=== PATIENT | female | born 1975 | race Caucasian/White ===

== ENCOUNTER 2016-11-18 21:32 | Emergency (ER) | payer SELFPAY ==
[~2016-11-18] VITALS: Ht 165.1 cm; Wt 93.5 kg
[2016-11-18 21:42] VITALS: Ht 165.1 cm; Wt 93.5 kg
[2016-11-18] MEDS ORDERED: ONDANSETRON 4 MG INJ IV STA (23:20)
[2016-11-18] MEDS ORDERED: SOD CHLORIDE 0.9% 1,000 ML IV STA (23:20)
[2016-11-18] MEDS ORDERED: morphine 4 MG/ML VIAL IV STA (23:20)
--- NOTE | 2016-11-18 23:37 | ERD ---
ER Documentation Chief Complaint Date/Time DATE: 11/18/16 TIME: 23:33 Chief Complaint pelvic pain today HPI 41-year-old female presents here in emergency department for complaints of left lower quadrant abdominal pain that started today. Patient discussed the pain as sharp pain, 8/10 scale, accompanied with nausea. Patient denies any fever or chills. Patient denies any diarrhea or constipation. Patient denies any back pain. Patient denies any sick contacts. Patient did not take any medications for pain. ROS All systems reviewed and are negative except as per history of present illness. Medications Home Meds Reported Medications [none] Unknown Strength No Conflict Check 11/18/16 Allergies Allergies: Coded Allergies: No Known Allergy (Unverified , 11/23/14) PMhx/Soc Medical and Surgical Hx: pt denies Medical Hx History of Surgery: Yes (hysterectomy ) Anesthesia Reaction: No Hx Neurological Disorder: No Hx Respiratory Disorders: No Hx Cardiac Disorders: No Hx Psychiatric Problems: No Hx Miscellaneous Medical Probl: No Hx Alcohol Use: No Hx Substance Use: No Hx Tobacco Use: No Smoking Status: Never smoker FmHx Family History: No coronary disease, No diabetes, No other Physical Exam Vitals Vital Signs Date Time Temp Pulse Resp B/P Pulse Ox O2 Delivery O2 Flow Rate FiO2 11/19/16 02:37 97.7 67 18 182/108 98 Room Air 11/18/16 21:42 99.8 81 20 174/90 100 Physical Exam GENERAL: The patient is well developed and appropriate for usual state of health, in no apparent distress. CHEST: Clear to auscultation bilaterally. There are no rales, wheezes or rhonchi. HEART: Regular rate and rhythm. No murmurs, clicks, rubs or gallops. No S3 or S4. ABDOMEN: Soft, nontender and nondistended. Good bowel sounds. No rebound or guarding. No gross peritonitis. No gross organomegaly or masses. No Day sign or McBurney point tenderness. BACK: No midline or flank tenderness. EXTREMITIES: Equal pulses bilaterally. There is no peripheral clubbing, cyanosis or edema. No focal swelling or erythema. Full range of motion. Grossly neurovascularly intact. NEURO: Alert and oriented. Cranial nerves 2-12 intact. Motor strength in all 4 extremities with 5/5 strength. Sensation grossly intact. Normal speech and gait. SKIN: There is no apparent rash or petechia. The skin is warm and dry. HEMATOLOGIC AND LYMPHATIC: There is no evidence of excessive bruising or lymphedema. No gross cervical, axillary, or inguinal lymphadenopathy. Result Diagram: 11/19/16 0010 11/19/16 0010 Results 24 hrs Laboratory Tests Test 11/19/16 00:10 White Blood Count 9.310^3/ul Red Blood Count 4.3710^6/ul Hemoglobin 11.9g/dl Hematocrit 38.0% Mean Corpuscular Volume 87.0fl Mean Corpuscular Hemoglobin 27.2pg Mean Corpuscular Hemoglobin Concent 31.3g/dl Red Cell Distribution Width 15.0% Platelet Count 60414^3/UL Mean Platelet Volume 11.3fl Neutrophils % 61.8% Lymphocytes % 31.0% Monocytes % 5.9% Eosinophils % 0.8% Basophils % 0.2% Nucleated Red Blood Cells % 0.0/100WBC Neutrophils # 5.710^3/ul Lymphocytes # 2.910^3/ul Monocytes # 0.610^3/ul Eosinophils # 0.110^3/ul Basophils # 0.010^3/ul Nucleated Red Blood Cells # 0.010^3/ul Urine Color LT. YELLOW Urine Clarity CLEAR Urine pH 6.0 Urine Specific [place] 1.015 Urine Ketones NEGATIVE Urine Nitrite NEGATIVE Urine Bilirubin NEGATIVE Urine Urobilinogen 0.2 E.U./dL Urine Leukocyte Esterase NEGATIVE Urine Microscopic RBC 5-10/HPF Urine Microscopic WBC 0-2/HPF Urine Squamous Epithelial Cells MODERATE Urine Hemoglobin 2+ Urine Glucose NEGATIVE% Urine Total Protein NEGATIVE Sodium Level 144mmol/L Potassium Level 3.5mmol/L Chloride Level 105mmol/L Carbon Dioxide Level 26mmol/L Anion Gap 17 Blood Urea Nitrogen 10mg/dl Creatinine 0.65mg/dl Glucose Level 105mg/dl Calcium Level 10.1mg/dl Total Bilirubin 0.2mg/dl Direct Bilirubin 0.00mg/dl Indirect Bilirubin 0.2mg/dl Aspartate Amino Transf (AST/SGOT) 29IU/L Alanine Aminotransferase (ALT/SGPT) 50IU/L Alkaline Phosphatase 104IU/L Total Protein 6.0g/dl Albumin 4.8g/dl Globulin 1.20g/dl Albumin/Globulin Ratio 4.00 Lipase 21U/L Current Medications Medications (Trade) Dose Ordered Sig/Surjit Route PRN Reason Start Time Stop Time Status Last Admin Dose Admin Sodium Chloride (NS) 1,000 ml @ 1,000 mls/hr Q1H STAT IV 11/18/16 23:20 11/19/16 00:19 DC 11/19/16 00:11 Morphine Sulfate (morphine) 4 mg ONCE STAT IV 11/18/16 23:20 11/18/16 23:21 DC 11/19/16 00:11 Ondansetron HCl (Zofran Inj) 4 mg ONCE STAT IV 11/18/16 23:20 11/18/16 23:21 DC 11/19/16 00:08 IV Flush 10 ml 10 ml STK-MED ONCE .ROUTE 11/19/16 00:19 11/19/16 00:20 DC 11/19/16 00:19 Sodium Chloride (NS) 100 ml @ ud STK-MED ONCE .ROUTE 11/19/16 00:19 11/19/16 00:20 DC 11/19/16 00:19 Iohexol (Omnipaque 300mg/ ml) 150 ml STK-MED ONCE .ROUTE 11/19/16 00:19 11/19/16 00:20 DC 11/19/16 00:19 Morphine Sulfate (morphine) 4 mg ONCE ONCE IV 11/19/16 02:12 11/19/16 02:13 DC 11/19/16 02:15 Patient was given medication for pain here in emergency department, after treatment, patient verbalized feeling much better. Patient's pain is improved.Patient was given Zofran here in the emergency department. After treatment, patient was able to tolerate po fluids here in the emergency department without any vomiting. There is no signs and symptoms of dehydration. Normal saline IV bolus was given here in emergency department for rehydration, patient tolerated IV fluids. PROCEDURE: CT ABDOMEN/PELVIS WITH CONTRAST CLINICAL INDICATION: 41-year-old female with abdominal pain. TECHNIQUE: The study was performed utilizing a [employer] 64-slice CT scanner. Direct axial sections were obtained through the abdomen and pelvis with the use of 100 cc of Omnipaque-300 nonionic intravenous contrast material. Sagittal and coronal reformations were obtained. One or more of the following dose reduction techniques were utilized: automated exposure control, adjustment of the mA and/or kV according to patient's size or use of iterative reconstruction technique. The images were reviewed on a PACS workstation. CTD/ vol = 22.3 mGy; Total Exam DLP = 1398.7 mGy-cm. COMPARISON: None. FINDINGS: There is trace bibasilar subsegmental atelectasis. There is no evidence for significant pleural effusion. The liver has a normal size and contour. There is diffuse decreased density throughout the liver consistent with fatty infiltration. There is a small hepatic cyst within the right lobe of the liver on axial image 3-38 measuring approximately 4 x 4 x 4 mm. There is additional hepatic cyst adjacent to the gallbladder on axial image 3-55 measuring approximately 8 x 12 x 7 mm. No intrahepatic nor extrahepatic biliary ductal dilatation is seen. The gallbladder contains a dependent gallstone measuring approximately 13 x 16 mm without significant wall thickening or pericholecystic fluid. The pancreas is without areas of abnormal attenuation or contrast enhancement. This spleen is identified and has a normal size without abnormal density or contrast enhancement. The adrenal glands are unremarkable. The kidneys are functional bilaterally without abnormal density. No hydroureteronephrosis nor nephroureterolithiasis is evident. The urinary bladder contains urine. There is umbilical hernia present with an opening of 8 x 10 mm containing fat. There is mild retained stool identified within the colon without obstruction. The appendix is visualized and is without edema or surrounding inflammatory reaction. The uterus is anteflexed. There is no significant free fluid. The left ovary appears prominent and measures approximately 3.9 x 3.6 x 2.9 cm. There is an additional left adnexal density measuring approximately 3.2 x 3.6 x 2.9 cm which may represent a subserosal fibroid however a left adnexal mass or adenopathy cannot be excluded. The aortoiliac vessels are without aneurysmal dilatation. The osseous structures are intact. IMPRESSION: 1. Diffuse fatty infiltration of the liver. 2. Hepatic cysts. 3. Gallstone. 4. Umbilical hernia containing fat. 5. Mild retained stool without obstruction. 6. No CT evidence for appendicitis. 7. Prominent left ovary with questionable additional left adnexal density which may represent and an elongated enlarged left ovary versus subserosal fibroid however a left adnexal mass or adenopathy cannot be excluded. Further evaluation with a pelvic ultrasound may be helpful. .Sterling Reza MD, MD Date Time Electronically viewed and signed by .Sterling Reza MD, MD on 11/19/2016 03:36 .M/ CC: CLAUDIA HUERTA NP PROCEDURE: US Pelvis. CLINICAL INDICATION: Left lower pelvic pain. Last menstrual period 2016 TECHNIQUE: Multiple sonographic images of the pelvis were obtained utilizing a transabdominal and endovaginal technique. The images were reviewed on a PACS workstation. COMPARISON: CT abdomen and pelvis with contrast of 11/19/2016 FINDINGS: The uterus measures 10.8 x 5.5 x 6.3 cm. Nabothian cysts in the cervix. Multiple rounded heterogeneous echotexture uterine masses consistent with fibroids are seen, a 1.6 cm submucosal fibroid in the anterior fundus, a 1.9 cm intramural fibroid in the posterior body, a 3.8 cm intramural and submucosal appearing fibroid in the posterior body, a 1.3 cm intramural fibroid in the posterior fundus, a 3.8 cm fibroid in the left cervix, a 1.7 cm fibroid in the left anterior cervix and a 1.7 cm fibroid in the posterior cervix. The thickness of the endometrium equals 8.3 mm. The right ovary measures 2.5 x 1.5 x 1.4 cm and is unremarkable. The left ovary measures 2.4 x 1.7 x 2.7 cm and is unremarkable. Color flow and spectral analysis demonstrates normal arterial flow in both ovaries. No adnexal mass or free intrapelvic fluid is seen. IMPRESSION: Consistent with multiple uterine fibroids noted above. Please see above. RPTAT: HJES .Everton Ackerman MD, MD Date Time Electronically viewed and signed by .Everton Ackerman MD, MD on 11/19/2016 05:03 .S/ CC: CLAUDIA HUERTA NP Procedures/MDM Medical Decision Making: Patient symptoms obtain most likely consistent with a multiple uterine fibroids noted in the ultrasound. There is low suspicion for abdominal emergencies at this time. Patients abdominal exam is normal at this time. Patients radiology exam does not show any abdominal emergencies at this time. There is low suspicion for appendicitis, cholecystitis, abdominal aortic aneurysms or peritonitis at this time. There is low suspicion for sepsis. Patient appears well and is hemodynamically stable. Disposition: Home. Condition: Stable Prescription Taberg, Colace, ibuprofen Instructions: Patient is advised to take medications as prescribed. Patient is advised to rest, increase fluid intake and do see gynecology specialist for possible removal of the uterine fibroid. Patient is advised that if symptoms are worse, severe abdominal pain, uncontrolled vomiting, high fever, severe flank pain, worst signs and symptoms, to return to the emergency department immediately. Otherwise, patient can follow up with primary care doctor in 5-7 days. Departure Diagnosis: Primary Impression: Uterine fibroid Uterine leiomyoma location: unspecified location Qualified Code: D25.9 - Uterine leiomyoma, unspecified location Condition: Stable Patient Instructions: Uterine Fibroids, What Are Fibroids? Additional Instructions: Patient is advised to take medications as prescribed. Patient is advised to rest , increase fluid intake and do see gynecology specialist for possible removal of the uterine fibroid. Patient is advised that if symptoms are worse, severe abdominal pain, uncontrolled vomiting, high fever, severe flank pain, worst signs and symptoms, to return to the emergency department immediately. Otherwise, patient can follow up with primary care doctor in 5-7 days. CLAUDIA HUERTA NP Nov 18, 2016 23:37
[2016-11-19] MEDS ORDERED: SOD CHLORIDE 0.9% 100 ML ONE (00:19)
[2016-11-19] MEDS ORDERED: IOHEXOL 300MG/ML 150 ML BTL ONE (00:19)
[2016-11-19 00:40] LABS: ADD UMIC YES; UR BILIRUBIN (Dip) NEGATIVE (NEGATIVE); UR BLOOD (Dip) 2+ (NEGATIVE); UR CLARITY CLEAR (CLEAR); UR COLOR LT. YELLOW (YELLOW); UR GLUCOSE (Dip) NEGATIVE (NEGATIVE); UR KETONES (Dip) NEGATIVE (NEGATIVE); UR LEUKOCYTE ESTERASE (Dip) NEGATIVE (NEGATIVE); UR NITRITE (Dip) NEGATIVE (NEGATIVE); UR TOTAL PROTEIN (Dip) NEGATIVE (NEGATIVE); UR UROBILINOGEN (Dip) 0.2 E.U./dL (0.1-1.0)
[2016-11-19 00:57] LABS: ADD SCAN DIFF NO
[2016-11-19 01:05] LABS: BASOPHILS % 0.2 % (0.0-2.0); EOSINOPHILS # 0.1 10^3/ul (0.0-0.5); EOSINOPHILS % 0.8 % (0.0-7.0); HEMOGLOBIN 11.9 g/dl (12.0-16.0); LYMPHOCYTES # 2.9 10^3/ul (0.8-2.9); MEAN CORPUSCULAR HEMOGLOBIN 27.2 pg (29.0-33.0); MEAN CORPUSCULAR HGB CONC 31.3 g/dl (32.0-37.0); MEAN PLATELET VOLUME 11.3 fl (7.4-10.4); MONOCYTE # 0.6 10^3/ul (0.3-0.9); MONOCYTES % 5.9 % (0.0-11.0); NEUTROPHIL # 5.7 10^3/ul (1.6-7.5); NEUTROPHILS % 61.8 % (39.0-77.0); PLATELET COUNT 332 10^3/UL (140-415); RED BLOOD COUNT 4.37 10^6/ul (4.20-5.40); WHITE BLOOD COUNT 9.3 10^3/ul (4.8-10.8)
[2016-11-19 01:25] LABS: ALBUMIN 4.8 g/dl (3.3-4.9); BILIRUBIN,INDIRECT 0.2 mg/dl (0-1.1); BILIRUBIN,TOTAL 0.2 mg/dl (0.2-1.3); CALCIUM 10.1 mg/dl (8.4-10.2); CREATININE 0.65 mg/dl (0.44-1.00); POTASSIUM 3.5 mmol/L (3.5-5.1)
[2016-11-19 01:39] LABS: UR SQUAMOUS EPITHELIAL CELL MODERATE
[2016-11-19] MEDS ORDERED: morphine 4 MG/ML VIAL IV ONE (02:12)
--- NOTE | 2016-11-19 03:36 | RADRPT ---
PROCEDURE: CT ABDOMEN/PELVIS WITH CONTRAST CLINICAL INDICATION: 41-year-old female with abdominal pain. TECHNIQUE: The study was performed utilizing a GE [employer] 64-slice CT scanner. Direct axia l sections were obtained through the abdomen and pelvis with the use of 100 cc of Omnipaque-300 joseph onic intravenous contrast material. Sagittal and coronal reformations were obtained. One or more of the following dose reduction techniques were utilized: automated exposure control, adjustment of the mA and/or kV according to patient's size or use of iterative reconstruction technique. The images were reviewed on a PACS workstation. CTD/vol = 22.3 mGy; Total Exam DLP = 1398.7 mGy-cm. COMPARISON: None. FINDINGS: There is trace bibasilar subsegmental atelectasis. There is no evidence for significant pleural eff usion. The liver has a normal size and contour. There is diffuse decreased density throughout the liver consistent with fatty infiltration. There is a small hepatic cyst within the right lobe of the liver on axial image 3-38 measuring approximately 4 x 4 x 4 mm. There is additional hepatic cyst a djacent to the gallbladder on axial image 3-55 measuring approximately 8 x 12 x 7 mm. No intrahepati c nor extrahepatic biliary ductal dilatation is seen. The gallbladder contains a dependent gallstone measuring approximately 13 x 16 mm without significant wall thickening or pericholecystic fluid. T he pancreas is without areas of abnormal attenuation or contrast enhancement. This spleen is identi fied and has a normal size without abnormal density or contrast enhancement. The adrenal glands are unremarkable. The kidneys are functional bilaterally without abnormal density. No hydroureteronephrosis nor nephroureterolithiasis is evident. The urinary bladder contains urine. The re is umbilical hernia present with an opening of 8 x 10 mm containing fat. There is mild retained s tool identified within the colon without obstruction. The appendix is visualized and is without gage ma or surrounding inflammatory reaction. The uterus is anteflexed. There is no significant free flui d. The left ovary appears prominent and measures approximately 3.9 x 3.6 x 2.9 cm. There is an add itional left adnexal density measuring approximately 3.2 x 3.6 x 2.9 cm which may represent a subser osal fibroid however a left adnexal mass or adenopathy cannot be excluded. The aortoiliac vessels a re without aneurysmal dilatation. The osseous structures are intact. IMPRESSION: 1. Diffuse fatty infiltration of the liver. 2. Hepatic cysts. 3. Gallstone. 4. Umbilical hernia containing fat. 5. Mild retained stool without obstruction. 6. No CT evidence for appendicitis. 7. Prominent left ovary with questionable additional left adnexal density which may represent and a n elongated enlarged left ovary versus subserosal fibroid however a left adnexal mass or adenopathy cannot be excluded. Further evaluation with a pelvic ultrasound may be helpful. .Sterling Reza MD, Date Time Electronically viewed and signed by .Sterling Reza MD, on 11/19/2016 03:36 .[place]/
--- NOTE | 2016-11-19 05:03 | RADRPT ---
PROCEDURE: US Pelvis. CLINICAL INDICATION: Left lower pelvic pain. Last menstrual period 10/23/2016 TECHNIQUE: Multiple sonographic images of the pelvis were obtained utilizing a transabdominal and endovaginal technique. The images were reviewed on a PACS workstation. COMPARISON: CT abdomen and pelvis with contrast of 11/19/2016 FINDINGS: The uterus measures 10.8 x 5.5 x 6.3 cm. Nabothian cysts in the cervix. Multiple rounded heterogen eous echotexture uterine masses consistent with fibroids are seen, a 1.6 cm submucosal fibroid in th e anterior fundus, a 1.9 cm intramural fibroid in the posterior body, a 3.8 cm intramural and submuc osal appearing fibroid in the posterior body, a 1.3 cm intramural fibroid in the posterior fundus, a 3.8 cm fibroid in the left cervix, a 1.7 cm fibroid in the left anterior cervix and a 1.7 cm fibroi d in the posterior cervix. The thickness of the endometrium equals 8.3 mm. The right ovary measure s 2.5 x 1.5 x 1.4 cm and is unremarkable. The left ovary measures 2.4 x 1.7 x 2.7 cm and is unremark able. Color flow and spectral analysis demonstrates normal arterial flow in both ovaries. No adnex al mass or free intrapelvic fluid is seen. IMPRESSION: Consistent with multiple uterine fibroids noted above. Please see above. RPTAT: HJES .Everton Ackerman MD, Date Time Electronically viewed and signed by .Everton Ackerman MD, on 11/19/2016 05:03 .S/
[2016-11-19] MEDS ORDERED: HYDROmorphONE 1 MG/ML SYG IV STA (05:09)
[2016-11-19] MEDS ORDERED: DOCU-144 PO (05:14)
[2016-11-19] MEDS ORDERED: IBUP-1542 PO (05:14)
[2016-11-19] MEDS ORDERED: HYDR-902 PO (05:14)
[2016-11-19 06:04] VITALS: BP 159/76; PULSE 60; RESP 18; TEMP 97.6
== END 2016-11-19 05:15 | disposition home or self-care (01) ==
LOC: FTE 21:32
DX: D25.9 Leiomyoma of uterus, unspecified (principal); R11.0 Nausea
CPT/HCPCS: 36415; 74177; 76830; 76856; 80053; 81001; 83690; 85025; 96374; 96375; 96376; 99285; J1170; J2270; J2405; J7030; Q9967

== ENCOUNTER 2017-04-18 22:34 | Emergency (ER) | payer SELFPAY ==
[~2017-04-18] VITALS: Ht 162.6 cm; Wt 95.2 kg
[~2017-04-18 22:34] MED LIST: DOCU-144 PO; HYDR-902 PO; IBUP-1542 PO
[2017-04-18 22:39] VITALS: Ht 162.6 cm; Wt 95.2 kg
[2017-04-18] MEDS ORDERED: SOD CHLORIDE 0.9% 1,000 ML IV STA (23:40)
[2017-04-18] MEDS ORDERED: morphine 4 MG/ML VIAL IV STA (23:40)
[2017-04-18] MEDS ORDERED: ONDANSETRON 4 MG INJ IV STA (23:40)
[2017-04-19 00:29] LABS: HEMATOCRIT 37.2 % (37.0-47.0); HEMOGLOBIN 11.9 g/dl (12.0-16.0); MEAN CORPUSCULAR VOLUME 87.5 fl (82.0-101.0); MEAN PLATELET VOLUME 11.5 fl (7.4-10.4); RED BLOOD COUNT 4.25 10^6/ul (4.20-5.40); RED CELL DISTRIBUTION WIDTH 15.5 % (11.5-14.5); WHITE BLOOD COUNT 11.6 10^3/ul (4.8-10.8)
[2017-04-19 00:38] LABS: ADD UMIC NO; UR ASCORBIC ACID NEGATIVE (NEGATIVE); UR BILIRUBIN (Dip) NEGATIVE (NEGATIVE); UR BLOOD (Dip) NEGATIVE (NEGATIVE); UR CLARITY CLEAR (CLEAR); UR COLOR STRAW (YELLOW); UR GLUCOSE (Dip) 1+ mg/dL (NEGATIVE); UR KETONES (Dip) NEGATIVE (NEGATIVE); UR LEUKOCYTE ESTERASE (Dip) NEGATIVE Leu/ul (NEGATIVE); UR NITRITE (Dip) NEGATIVE (NEGATIVE); UR SPECIFIC GRAVITY (Dip) 1.011 (1.003-1.030); UR TOTAL PROTEIN (Dip) NEGATIVE (NEGATIVE); UR UROBILINOGEN (Dip) NEGATIVE (NEGATIVE)
[2017-04-19 00:50] LABS: PLATELET COUNT 147 10^3/UL (140-415); POSITIVE DIFF @See below
[2017-04-19 00:53] LABS: ALBUMIN 4.1 g/dl (3.3-4.9); ALBUMIN/GLOBULIN RATIO 1.05; BILIRUBIN,INDIRECT 0.2 mg/dl (0-1.1); BILIRUBIN,TOTAL 0.2 mg/dl (0.2-1.3); CALCIUM 9.3 mg/dl (8.4-10.2); CREATININE 0.64 mg/dl (0.44-1.00); POTASSIUM 4.2 mmol/L (3.5-5.1)
[2017-04-19 02:00] LABS: ANISOCYTOSIS 1+ (0-0); BURR CELLS 1+ (0-0); EOSINOPHILS % (M) 2 % (0-7); MICROCYTOSIS 1+ (0-0); MONOCYTES % (M) 4 % (0-11); OVALOCYTES 1+ (0-0); PLATELET ESTIMATE NORMAL; POIKILOCYTOSIS 1+ (0-0); POLYCHROMASIA 1+ (0-0)
--- NOTE | 2017-04-19 02:03 | RADRPT ---
PROCEDURE: US Pelvis. CLINICAL INDICATION: Abdominal pain. Last menstrual period 03/15/2017 TECHNIQUE: Multiple sonographic images of the pelvis were obtained utilizing a transabdominal and endovaginal technique. The images were reviewed on a PACS workstation. COMPARISON: US PELVIS 11/19/2016 FINDINGS: The uterus measures 10.6 x 5.6 x 5.7 cm. The thickness of the endometrium equals 1.56 cm. Nabothian cysts in the cervix. Multiple rounded heterogeneous echotexture uterine masses consistent with fibr oids are seen, a 3.9 cm subserosal fibroid arising from the left posterior lower uterine segment/cer vix, a 1.2 cm intramural fibroid in the posterior fundus, a 1.9 cm intramural and submucosal appeari ng fibroid in the posterior body, a 2.1 cm submucosal fibroid in the central body, a 1.6 cm intramur al fibroid in the posterior cervix and a 1.6 cm intramural fibroid in the left anterior lower uterin e segment region. The right ovary measures 2.3 x 1.9 x 1.5 cm and is unremarkable. The left ovary me asures 3.3 x 1.8 x 2.1 cm and is unremarkable. Color flow and spectral analysis demonstrates normal arterial and venous flow in both ovaries. No adnexal mass or free intrapelvic fluid is seen. IMPRESSION: Consistent with multiple uterine fibroids overall not significantly changed in size compared to the previous study. Please see above. RPTAT: HJES .Everton Ackerman MD, Date Time Electronically viewed and signed by .Everton Ackerman MD, on 04/19/2017 02:03 .S/
[2017-04-19] MEDS ORDERED: KETOROLAC 60 MG INJ IM STA (02:04)
[2017-04-19] MEDS ORDERED: FENTAnyl 50 MCG/ML VIAL IV ONE ×2 (02:30)
--- NOTE | 2017-04-19 03:00 | RADRPT ---
PROCEDURE: ULTRASOUND LIMITED ABDOMEN CLINICAL INDICATION: 42-year-old female with abdominal pain. TECHNIQUE: Multiple sonographic of the right upper quadrant of the abdomen were obtained. The imag es were reviewed on a PACS workstation. COMPARISON: None. FINDINGS: The pancreas is not well visualized secondary to overlying bowel gas. The liver displays diffuse increased echogenicity consistent with fatty infiltration. The liver franklin ures 15 point a cm in length. No evidence of intrahepatic biliary ductal dilatation is seen. The po rtal and hepatic veins are unremarkable. The gallbladder prominent shadowing stone lodged within the gallbladder neck region as well as layer ing echogenic sludge. The gallbladder wall thickness is within normal limits measuring 2.6 mm. There is a positive sonographic Day's sign. No pericholecystic fluid is seen. The common bile duct ulices sures 3.7 mm and is not dilated. The right kidney displays normal echogenicity. The right kidney measures 11.3 cm in maximal length. No caliectasis or hydronephrosis is seen. No free fluid is seen. IMPRESSION: 1. Hepatic steatosis. 2. Nonmobile gallstone within the gallbladder neck region. .Sterling Reza MD, Date Time Electronically viewed and signed by .Sterling Reza MD, on 04/19/2017 03:00 .[place]/
[2017-04-19] MEDS ORDERED: ONDA4TAB11 PO (04:35)
[2017-04-19] MEDS ORDERED: NAPR-688 PO (04:35)
[2017-04-19] MEDS ORDERED: HYDR-906 PO (04:35)
[2017-04-19 04:53] VITALS: BP 159/99; PULSE 73; RESP 18
--- NOTE | 2017-05-10 09:42 | ERD ---
ER Documentation Chief Complaint Chief Complaint PT IN C/O "NAUSEA AND ABDOMINAL PAIN X 1 DAY" HPI This 42 year olf female presents for mild/mod RUQ and Lower mid abdominal pain with nausea since yesterday that occurs during rest or exertion. Normal bowel habits. No fevers. ROS All systems reviewed and are negative except as per history of present illness. Medications Home Meds Active Scripts Ondansetron (Zofran Odt) 4 Mg Tab.rapdis, 4 MG PO Q6, #13 Prov:CHELY HOLLY DO 04/19/17 Naproxen* (Naproxen*) 500 Mg Tablet, 500 MG PO BID Y for PAIN, #30 TAB Prov:CHELY HOLLY DO 04/19/17 Hydrocodone/Acetaminophen ([place] 5-325 Tablet) 1 Each Tablet, 1 EACH PO Q6 for SEVERE PAIN LEVEL 7-10, #27 TAB Prov:CHELY HOLLY DO 04/19/17 Docusate Sodium* (Colace*) 100 Mg Capsule, 100 MG PO TID, #30 CAP Prov:CLAUDIA HUERTA NP 11/19/16 Hydrocodone/Acetaminophen ([place] 10-325 Tablet) 1 Each Tablet, 1 TAB PO Q6H Y for SEVERE PAIN LEVEL 7-10, #20 TAB Prov:CLAUDIA HUERTA [employer] 11/19/16 Ibuprofen* (Motrin*) 600 Mg Tab, 600 MG PO Q6H Y for PAIN AND OR ELEVATED TEMP, #30 TAB Prov:CLAUDIA HUERTA [employer] 11/19/16 Reported Medications [none] Unknown Strength No Conflict Check 11/18/16 Allergies Allergies: Coded Allergies: No Known Allergy (Unverified , 11/23/14) PMhx/Soc Medical and Surgical Hx: pt denies Medical Hx History of Surgery: Yes (hysterectomy ) Anesthesia Reaction: No Hx Neurological Disorder: No Hx Respiratory Disorders: No Hx Cardiac Disorders: No Hx Psychiatric Problems: No Hx Miscellaneous Medical Probl: No Hx Alcohol Use: No Hx Substance Use: No Hx Tobacco Use: No Smoking Status: Never smoker Physical Exam Physical Exam Const: [] Mild distress Head: Atraumatic Eyes: Normal Conjunctiva ENT: Normal External Ears, Nose and Mouth. Neck: Full range of motion.. Resp: Clear to auscultation bilaterally Cardio: Regular rate and rhythm, no murmurs Abd: Soft, mild RUQ and infraumbilical tendernes, non distended. Normal bowel sounds Skin: No petechiae or rashes Back: No midline or flank tenderness Ext: No cyanosis, or edema Neur: Awake and alert Psych: Normal Mood and Affect Results 24 hrs Laboratory Tests Test 04/18/17 23:40 04/18/17 23:50 Urine Color STRAW Urine Clarity CLEAR Urine pH 7.0 Urine Specific [place] 1.011 Urine Ketones NEGATIVEmg/dL Urine Nitrite NEGATIVEmg/dL Urine Bilirubin NEGATIVEmg/dL Urine Urobilinogen NEGATIVEmg/dL Urine Leukocyte Esterase NEGATIVELeu/ul Urine Hemoglobin NEGATIVEmg/dL Urine Glucose 1+mg/dL Urine Total Protein NEGATIVEmg/dl White Blood Count 11.610^3/ul Red Blood Count 4.2510^6/ul Hemoglobin 11.9g/dl Hematocrit 37.2% Mean Corpuscular Volume 87.5fl Mean Corpuscular Hemoglobin 28.0pg Mean Corpuscular Hemoglobin Concent 32.0g/dl Red Cell Distribution Width 15.5% Platelet Count 59976^3/UL Mean Platelet Volume 11.5fl Neutrophils % % Segmented Neutrophils % (Manual) 64% Band Neutrophils % (Manual) 3% Lymphocytes % % Lymphocytes % (Manual) 27% Monocytes % % Monocytes % (Manual) 4% Eosinophils % % Eosinophils % (Manual) 2% Basophils % % Nucleated Red Blood Cells % 0.0/100WBC Neutrophils # 10^3/ul Neutrophils # (Manual) 7.510^3/ul Band Neutrophils # 0.310^3/ul Absolute Lymphocytes (Manual) 3.110^3/ul Lymphocytes # 10^3/ul Monocytes # 10^3/ul Absolute Monocytes (Manual) 0.410^3/ul Eosinophils # 10^3/ul Basophils # 10^3/ul Nucleated Red Blood Cells # 10^3/ul Platelet Estimate NORMAL Platelet Morphology Comment @See below Polychromasia 1+ Poikilocytosis 1+ Anisocytosis 1+ Microcytosis 1+ Ovalocytes 1+ Sodium Level 140mmol/L Potassium Level 4.2mmol/L Chloride Level 107mmol/L Carbon Dioxide Level 21mmol/L Anion Gap 16 Blood Urea Nitrogen 13mg/dl Creatinine 0.64mg/dl Glucose Level 141mg/dl Calcium Level 9.3mg/dl Total Bilirubin 0.2mg/dl Direct Bilirubin 0.00mg/dl Indirect Bilirubin 0.2mg/dl Aspartate Amino Transf (AST/SGOT) 30IU/L Alanine Aminotransferase (ALT/SGPT) 34IU/L Alkaline Phosphatase 98IU/L Total Protein 8.0g/dl Albumin 4.1g/dl Globulin 3.90g/dl Albumin/Globulin Ratio 1.05 Lipase 121U/L Current Medications Medications (Trade) Dose Ordered Sig/Surjit Route PRN Reason Start Time Stop Time Status Last Admin Dose Admin Sodium Chloride (NS) 1,000 ml @ 1,000 mls/hr Q1H STAT IV 04/18/17 23:40 04/19/17 00:39 DC 04/19/17 00:05 Morphine Sulfate (morphine) 4 mg ONCE STAT IV 04/18/17 23:40 04/18/17 23:42 DC 04/19/17 00:06 Ondansetron HCl (Zofran Inj) 4 mg ONCE STAT IV 04/18/17 23:40 04/18/17 23:42 DC 04/19/17 00:06 Ketorolac Tromethamine (Toradol) 60 mg ONCE STAT IM 04/19/17 02:04 04/19/17 02:05 DC 04/19/17 02:09 Fentanyl (Sublimaze) 50 mcg ONCE ONCE IV 04/19/17 02:30 04/19/17 02:31 DC 04/19/17 02:09 Fentanyl (Sublimaze) 50 mcg ONCE ONCE IV 04/19/17 02:30 04/19/17 02:31 DC 04/19/17 02:10 Procedures/MDM Biliary colic and fibroids causing abdominal pain. Pain was easily controlled with morphine and fentanyl. Nausea resolved with zofran IV. IV normal saline hydration also. She was offered admission because of the stone appearing to be in the neck of the GB but declined and preferred to go home and follow up with general surgery. She was aware of both gallstones and fibroids. Strict return precautions given. US GB: Gallstone in GB neck with no ductal dilation US Pelvis: Uterine fibroids without uterine rupture Departure Diagnosis: Primary Impression: Biliary colic Additional Impression: Uterine fibroid Condition: Stable Patient Instructions: Biliary Colic With Gallstone (Confirmed) Referrals: [facility] YOU HAVE RECEIVED A MEDICAL SCREENING EXAM AND THE RESULTS INDICATE THAT YOU DO NOT HAVE A CONDITION THAT REQUIRES URGENT TREATMENT IN THE EMERGENCY DEPARTMENT. FURTHER EVALUATION AND TREATMENT OF YOUR CONDITION CAN WAIT UNTIL YOU ARE SEEN IN YOUR DOCTORS OFFICE WITHIN THE NEXT 1-2 DAYS. IT IS YOUR RESPONSIBILITY TO MAKE AN APPOINTMENT FOR FOLOW-UP CARE. IF YOU HAVE A PRIMARY DOCTOR --you should call your primary doctor and schedule an appointment IF YOU DO NOT HAVE A PRIMARY DOCTOR YOU CAN CALL OUR PHYSICIAN REFERRAL HOTLINE AT IF YOU CAN NOT AFFORD TO SEE A PHYSICIAN YOU CAN CHOSE FROM THE FOLLOWING [facility] [address] [facility] [facility] [address] [facility] [address] [facility] [address] [facility] [address] [facility]. [facility]. [address] Additional Instructions: Call your primary care doctor TOMORROW for an appointment during the next 2-3 days. Get a referral to a general surgeon. See the doctor sooner or return here if your condition worsens before your appointment time. CHELY HOLLY DO May 10, 2017 09:26
== END 2017-04-19 04:53 | disposition home or self-care (01) ==
LOC: FTE 22:34 → E/R 04-19 04:53
DX: K80.50 Calculus of bile duct without cholangitis or cholecystitis without obstruction (principal); D25.9 Leiomyoma of uterus, unspecified; R11.0 Nausea
CPT/HCPCS: 76705; 76830; 76856; 80053; 81003; 83690; 85025; J1885; J2270; J2405; J3010; J7030; 36415; 96372; 96374; 96375; 96376